=== PATIENT | male | born 1975 | race Caucasian/White ===

== ENCOUNTER → 2017-02-09 | Outpatient (CLI) | payer OTHER | LOC: RAD 11:36 | DX: J44.9 Chronic obstructive pulmonary disease, unspecified (principal) | CPT/HCPCS: 71020 ==

== ENCOUNTER → 2017-02-09 | Outpatient (CLI) | payer OTHER | LOC: HEART 5 10:36 | DX: J44.9 Chronic obstructive pulmonary disease, unspecified (principal) | CPT/HCPCS: 94060 ==

== ENCOUNTER → 2021-05-28 | Outpatient (CLI) | payer OTHER ==
[~2021-05-28] MED LIST: CARDIZEM CD120 MG PO; COREG6.25 MG PO; DULERA 200 MCG8.8 GM INH; IMDUR ER TAB 3030 MG PO; IPRAT-ALBUT 0.5-3 ML INH; LASIX20 MG PO; LIPITOR TAB 2020 MG PO; LISINOPRIL-HCT1 EACH PO; NITROSTAT0.4 MG SL; SPIRIVA RESPIMAT4 GM INH; VENTOLIN HFA 66.7 GM INH; ZYRTEC10 M2 PO
[2021-05-28 09:29] LABS: HEMOGLOBIN 17.7 gm/dl (14.0-17.5); RED BLOOD COUNT 5.5 M/UL (4.20-5.50); WHITE BLOOD COUNT 8.1 K/UL (4.5-11.0)
[2021-05-28 10:12] LABS: BUN/CREATININE RATIO 14 (0-10)
== END ==
LOC: LAB 08:37
PROVIDERS: Internal Medicine Cardiovascular Disease
DX: I10 Essential (primary) hypertension (principal)
CPT/HCPCS: 80053; 80061; 84436; 84439; 84443; 85025

== ENCOUNTER → 2021-07-18 | Outpatient (CLI) | payer OTHER | LOC: CT 11:01 | DX: C64.9 Malignant neoplasm of unspecified kidney, except renal pelvis (principal); K76.0 Fatty (change of) liver, not elsewhere classified | CPT/HCPCS: 36415; Q9967 ==

== ENCOUNTER → 2022-04-07 | Outpatient (CLI) | payer OTHER | LOC: LAB 14:20 | DX: Z20.822 Contact with and (suspected) exposure to COVID-19 (principal) | CPT/HCPCS: U0003 ==

== ENCOUNTER → 2022-06-22 | Outpatient (CLI) | payer OTHER ==
[2022-06-22 14:16] LABS: BUN/CREATININE RATIO 9 (0-10)
== END ==
LOC: LAB 13:40
PROVIDERS: Urology
DX: N30.20 Other chronic cystitis without hematuria (principal); N19 Unspecified kidney failure
CPT/HCPCS: 36415; 74018; 80053